=== PATIENT | female | born 1960 | race African-American/Black ===

== ENCOUNTER 2022-03-21 08:51 | Inpatient (IN) | payer OTHER ==
[2022-03-21] MEDS ORDERED: SODIUM CHLORIDE 0.9% 500 ML INFUS.BAG IV ONE (09:15)
[2022-03-21 09:28] VITALS: BMI 20.9
[2022-03-21 10:45] LABS: VENOUS BASE EXCESS -6.4 mmol/L (-2-2); VENOUS O2 SATURATION 55.4 % (70-80); VENOUS PCO2 37.9 mmHg (38-52); VENOUS PH 7.32 (7.310-7.410)
[2022-03-21 10:46] LABS: BASO % 0.7 % (0-2.0); EOS % 2.8 % (0-4.5); HEMATOCRIT 33.6 % (32.4-45.2); HEMOGLOBIN 10.8 GM/dL (10.7-15.3); LYMPH % 8.7 % (8-40); MCH 31.6 pg (25.7-33.7); MCHC 32.1 g/dl (32.0-36.0); MEAN CELL VOLUME 98.4 fl (80-96); MEAN PLT VOLUME 9.6 fl (7.5-11.1); NEUT % 82.8 % (42.8-82.8); PLATELET COUNT 123 10^3/uL (134-434); RBC 3.41 M/mm3 (3.60-5.2); RDW 14.9 % (11.6-15.6); WHITE BLOOD COUNT 5.4 K/mm3 (4.0-10.0)
[2022-03-21 11:02] LABS: CHLORIDE 100 mmol/L (98-107); SODIUM 130 mmol/L (136-145)
[2022-03-21 11:05] LABS: ALBUMIN 2.9 g/dl (3.4-5.0); CALCIUM 9.3 mg/dL (8.5-10.1)
[2022-03-21 11:06] LABS: ANION GAP 11 MMOL/L (8-16); CO2 19 mmol/L (21-32); MAGNESIUM 2.3 mg/dL (1.8-2.4)
[2022-03-21 11:10] LABS: CREATININE 3.2 mg/dL (0.55-1.3); PHOSPHOROUS 3.2 mg/dL (2.5-4.9); SGOT/AST 19 U/L (15-37); SGPT/ALT 16 U/L (13-61)
[2022-03-21 11:11] LABS: BILIRUBIN,TOTAL 0.8 mg/dL (0.2-1); TOT PROT 8.4 g/dl (6.4-8.2)
[2022-03-21 11:13] LABS: ALK PHOS 163 U/L (45-117)
[2022-03-21 11:15] LABS: GLUCOSE,RANDOM 848 mg/dL (74-106)
[2022-03-21] MEDS ORDERED: SODIUM CHLORIDE 1,000 ML IV STA ×2 (11:27→13:47)
[2022-03-21] MEDS ORDERED: INSULIN REGULAR HUMAN 100 UNITS/ML *VIAL SQ ONE ×2 (11:32→13:36)
[2022-03-21] MEDS ORDERED: INSULIN REGULAR HUMAN 100 UNITS/ML *VIAL ONE ×2 (11:40→13:48)
[2022-03-21 12:38] LABS: EPI CELLS 12 /uL (0-25.1); HYALINE CASTS 0 /uL (0-3.1); PH,URINE 5.5 (5.0-8.0); URINE APPEARANCE CLEAR; URINE BACTERIA 44 /uL (0-1359); URINE BILIRUBIN NEGATIVE (NEGATIVE); URINE COLOR YELLOW; URINE GLUCOSE (UA) 3+ (NEGATIVE); URINE KETONE NEGATIVE (NEGATIVE); URINE LEUK ESTERASE 2+ (NEGATIVE); URINE NITRITE NEGATIVE (NEGATIVE); URINE PROTEIN 1+ (NEGATIVE); URINE RBC 9 /uL (0-23.9); URINE UROBILINOGEN 0.2 mg/dL (0.2-1.0); URINE WBC 143 /uL (0-25.8)
[2022-03-21] MEDS: SOFOSBUVIR PO SCH (12:40)
[2022-03-21] MEDS: LEDIPASVIR PO SCH (12:40)
[2022-03-21 13:17] LABS: CHLORIDE 107 mmol/L (98-107); SODIUM 135 mmol/L (136-145)
[2022-03-21 13:18] LABS: ANION GAP 11 MMOL/L (8-16); CALCIUM 8.3 mg/dL (8.5-10.1); CO2 18 mmol/L (21-32)
[2022-03-21 13:19] LABS: BLOOD UREA NITROGEN 37.8 mg/dL (7-18)
[2022-03-21] MEDS ORDERED: CEFTRIAXONE 1,000 MG in DEXTROSE 5%-WATER - 50 ML IVPB ONE (13:20)
[2022-03-21 13:23] LABS: CREATININE 2.8 mg/dL (0.55-1.3)
[2022-03-21] MEDS ORDERED: CEFTRIAXONE 1 GM/50 ML BAG ONE (13:29)
[2022-03-21 13:31] LABS: GLUCOSE,RANDOM 635 mg/dL (74-106)
[2022-03-21] MEDS ORDERED: ACETAMINOPHEN 325 MG TABLET (FP) PO PRN (13:49)
[2022-03-21] MEDS ORDERED: HEPARIN NA (PORCINE) 5,000 UNITS/ML 1ML VIAL ONE (14:14)
[2022-03-21] MEDS ORDERED: INSULIN (LEVEMIR) 100 UNITS/ML UNITS SQ ONE (14:15)
[2022-03-21] MEDS: HEPARIN NA (PORCINE) 5,000 UNITS/ML 1ML VIAL SQ SCH ×2 (14:23→22:19)
[2022-03-21] MEDS: INSULIN (LEVEMIR) 100 UNITS/ML UNITS SQ SCH ×2 (14:23→22:21)
[2022-03-21] MEDS ORDERED: DEXTROSE 50%-WATER - 25 GM/50 ML VIAL IVPUSH PRN (16:01)
[2022-03-21] MEDS ORDERED: SODIUM CHLORIDE 1,000 ML IV SCH (16:15)
[2022-03-21] MEDS ORDERED: INSULIN (NOVOLOG) ASPART 100 UNITS/ML 10ML VIAL SQ SCH (16:30)
[2022-03-21] MEDS: INSULIN SLIDING SCALE (NOVOLOG) 1 VIAL SQ SCH ×2 (17:01→22:21)
[2022-03-21] MEDS ORDERED: FAMOTIDINE 20 MG/50 ML IVPB 20 MG/50 ML MG IVPB ONE ×2 (18:19→18:28)
[2022-03-21] MEDS ORDERED: MAG HYDROX/AL HYDROX/SIMETH 30 ML UNIT-DOSE CUP PO PRN (18:19)
[2022-03-21 19:48] LABS: CHOLESTEROL 126 mg/dL (50-200); TRIGLYCERIDES 168 mg/dL (0-150)
[2022-03-21 19:50] LABS: LDL CHOLESTEROL (ONLY SJRH) 62 mg/dL (5-100)
[2022-03-21 19:51] LABS: HDL CHOLESTEROL 33 mg/dL (40-60)
[2022-03-21 20:03] LABS: ANION GAP 10 MMOL/L (8-16); BLOOD UREA NITROGEN 36.1 mg/dL (7-18); CALCIUM 8.7 mg/dL (8.5-10.1); CHLORIDE 112 mmol/L (98-107); CO2 19 mmol/L (21-32); CREATININE 2.8 mg/dL (0.55-1.3); GLUCOSE,RANDOM 490 mg/dL (74-106); SODIUM 141 mmol/L (136-145)
[2022-03-21] MEDS: CARVEDILOL 25 MG TABLET (FP) PO SCH (22:10)
[2022-03-21] MEDS: hydrALAZINE HCL 50 MG TABLET (FP) PO SCH (22:10)
[2022-03-21 22:23] LABS: BLOOD UREA NITROGEN 33.1 mg/dL (7-18); CALCIUM 8.4 mg/dL (8.5-10.1)
[2022-03-21] MEDS ORDERED: DEXTROSE 50%-WATER 25 GM/50 ML DISP.SYRIN IVPUSH PRN (22:23)
[2022-03-21 22:26] LABS: CREATININE 2.4 mg/dL (0.55-1.3)
[2022-03-22] MEDS: HEPARIN NA (PORCINE) 5,000 UNITS/ML 1ML VIAL SQ SCH ×3 (05:42→21:37)
[2022-03-22] MEDS: hydrALAZINE HCL 50 MG TABLET (FP) PO SCH ×3 (05:46→21:37)
[2022-03-22 06:01] VITALS: RESP 18
[2022-03-22] MEDS: INSULIN SLIDING SCALE (NOVOLOG) 1 VIAL SQ SCH ×4 (06:59→21:39)
[2022-03-22] MEDS ORDERED: DEXTROSE 5%-0.45% SALINE 1,000 ML IV SCH (08:15)
[2022-03-22] MEDS ORDERED: SODIUM CHLORIDE 1,000 ML IV SCH (08:30)
[2022-03-22] MEDS: CARVEDILOL 25 MG TABLET (FP) PO SCH ×2 (09:26→21:37)
[2022-03-22] MEDS: NIFEdipine E.R 60 MG TABLET PO SCH (09:27)
[2022-03-22] MEDS: SOFOSBUVIR PO SCH (09:27)
[2022-03-22] MEDS: LEDIPASVIR PO SCH (09:27)
[2022-03-22] MEDS: INSULIN (LEVEMIR) 100 UNITS/ML UNITS SQ SCH ×2 (10:59→21:38)
[2022-03-22 12:06] LABS: HEMATOCRIT 32.5 % (32.4-45.2); HEMOGLOBIN 10.4 GM/dL (10.7-15.3); MCH 30.9 pg (25.7-33.7); MCHC 32.1 g/dl (32.0-36.0); MEAN CELL VOLUME 96.1 fl (80-96); MEAN PLT VOLUME 9.9 fl (7.5-11.1); PLATELET COUNT 153 10^3/uL (134-434); RBC 3.38 M/mm3 (3.60-5.2); RDW 14.4 % (11.6-15.6)
[2022-03-22 12:34] LABS: BLOOD UREA NITROGEN 27.4 mg/dL (7-18); CALCIUM 8.8 mg/dL (8.5-10.1)
[2022-03-22 12:38] LABS: CREATININE 2.4 mg/dL (0.55-1.3); PHOSPHOROUS 2.3 mg/dL (2.5-4.9)
[2022-03-22] MEDS: SODIUM CHLORIDE 0.45%/POT 20 MEQ/1,000 ML INFUS.BAG IV SCH ×2 (13:41→23:28)
[2022-03-23] MEDS: hydrALAZINE HCL 50 MG TABLET (FP) PO SCH ×3 (06:18→21:40)
[2022-03-23] MEDS: HEPARIN NA (PORCINE) 5,000 UNITS/ML 1ML VIAL SQ SCH ×3 (06:18→21:40)
[2022-03-23] MEDS: INSULIN SLIDING SCALE (NOVOLOG) 1 VIAL SQ SCH ×4 (06:19→21:41)
[2022-03-23 08:52] LABS: BASO % 0.6 % (0-2.0); EOS % 5.5 % (0-4.5); HEMATOCRIT 29.2 % (32.4-45.2); HEMOGLOBIN 9.5 GM/dL (10.7-15.3); MCH 31.5 pg (25.7-33.7); MCHC 32.7 g/dl (32.0-36.0); MEAN CELL VOLUME 96.3 fl (80-96); MEAN PLT VOLUME 9.2 fl (7.5-11.1); MONO % 11.2 % (3.8-10.2); NEUT % 58.7 % (42.8-82.8); PLATELET COUNT 98 10^3/uL (134-434); RBC 3.03 M/mm3 (3.60-5.2); RDW 14.6 % (11.6-15.6); WHITE BLOOD COUNT 4.3 K/mm3 (4.0-10.0)
[2022-03-23 09:12] LABS: CALCIUM 9.1 mg/dL (8.5-10.1)
[2022-03-23 09:13] LABS: BLOOD UREA NITROGEN 25.4 mg/dL (7-18); MAGNESIUM 1.8 mg/dL (1.8-2.4)
[2022-03-23 09:15] LABS: CREATININE 2.3 mg/dL (0.55-1.3); PHOSPHOROUS 2.1 mg/dL (2.5-4.9)
[2022-03-23 09:18] LABS: BILIRUBIN,TOTAL 0.5 mg/dL (0.2-1); TOT PROT 6.7 g/dl (6.4-8.2)
[2022-03-23 09:25] LABS: ALBUMIN 2.2 g/dl (3.4-5.0)
[2022-03-23] MEDS ORDERED: REGADENOSON 0.4 MG/5 ML PRE-FILLED SYRINGE IVPUSH ONE ×2 (09:26→11:45)
[2022-03-23] MEDS: INSULIN (LEVEMIR) 100 UNITS/ML UNITS SQ SCH ×2 (11:02→21:40)
[2022-03-23] MEDS: LEDIPASVIR PO SCH ×2 (11:02→12:00)
[2022-03-23] MEDS: SOFOSBUVIR PO SCH ×2 (11:02→12:00)
[2022-03-23] MEDS: CARVEDILOL 25 MG TABLET (FP) PO SCH ×2 (11:02→21:40)
[2022-03-23] MEDS: NIFEdipine E.R 60 MG TABLET PO SCH (11:03)
[2022-03-23] MEDS: SODIUM CHLORIDE 0.45%/POT 20 MEQ/1,000 ML INFUS.BAG IV SCH (11:03)
[2022-03-23] MEDS ORDERED: AMINOPHYLLINE 250 MG/10 ML VIAL IVPUSH ONE (11:55)
[2022-03-23 21:04] VITALS: BP 140/80; PULSE 78; TEMP 98.3
== END 2022-03-23 23:00 | disposition home or self-care (01) | DRG 420 ==
LOC: JER 08:51 → JERBED 12:52 → J6S 19:34
PROVIDERS: ADMIT Internal Medicine; ATTEND Internal Medicine
DX: E11.00 Type 2 diabetes mellitus with hyperosmolarity without nonketotic hyperglycemic-hyperosmolar coma (NKHHC) (principal); N17.9 Acute kidney failure, unspecified; N18.4 Chronic kidney disease, stage 4 (severe); C22.0 Liver cell carcinoma; B19.20 Unspecified viral hepatitis C without hepatic coma; I12.9 Hypertensive chronic kidney disease with stage 1 through stage 4 chronic kidney disease, or unspecified chronic kidney disease
CPT/HCPCS: 36415; 71045-TC-FY; 78452-TC; 80048; 80053; 80061; 81003; 82010; 82803; 82962; 83036; 83735; 83930; 84100; 84484; 85025; 85027; 87086; 93005; 93010; 93017; 93306-TC; 99291; A9502; C9803-CS; J1644; J2785; J3480; U0003; U0005